=== PATIENT | male | born 2000 | race Caucasian/White ===

== ENCOUNTER → 2024-04-24 08:09 | Outpatient (CLI) | payer OTHER, SELFPAY ==
--- NOTE | 2024-04-24 08:12 | DI.RAD.S_ITS ---
PROCEDURE: [place] SHOULDER INJECTION MR/CT RT INDICATIONS: RIGHT SHOULDER PAIN COMPARISON: None. TECHNIQUE: The indications, alternatives, benefits, risks, and complications of the procedure were explained to the patient. Written informed consent was obtained and placed in the chart. The shoulder was examined fluoroscopically and a site for needle placement chosen for entry into the glenohumeral joint from an anterior approach. The skin was prepped and draped in a sterile fashion, and 1% lidocaine infiltrated from skin down to joint capsule. A spinal needle was inserted into the glenohumeral joint, and a small amount of iodinated contrast media injected to confirm intra-articular placement of the needle tip. This was followed by approximately 12 mL dilute solution of a gadolinium containing MR contrast agent. The needle was removed and a dressing was applied. The patient was given postprocedural instructions and sent to the MR suite for MR imaging. FINDINGS: A single fluoroscopic spot image demonstrates intra-articular location of injected iodinated contrast. IMPRESSION: Successful fluoroscopically guided administration of dilute Gadolinium solution into the shoulder joint for MR arthrogram. Approved by: Mehran Reyes M.D. on 04/24/2024 at 10:03
--- NOTE | 2024-04-24 08:12 | DI.MRI.S_ITS ---
PROCEDURE: MR SHOULDER RT W CON INDICATIONS: RIGHT SHOULDER PAIN; persistent pain after fall from approximately 7 ft height, not improved with PT. Concern for SLAP lesion versus rotator cuff tendinopathy. TECHNIQUE: After the administration of 12 mL of dilute intra-articular Gadolinium contrast, oblique coronal T1 and T2 spin echo with fat saturation, oblique sagittal T1 spin echo with and without fat saturation, oblique sagittal T2 fast spin echo with fat saturation, axial T1 spin echo with fat saturation through the shoulder. COMPARISON: [facility], , [place] SHOULDER INJECTION MR/CT RT, 04/24/2024, 7:30. FINDINGS: Image quality: Excellent. Rotator cuff: Mild supraspinatus tendinosis. The infraspinatus, teres minor, and subscapularis tendons are intact. The rotator cuff musculature is well-developed. Bones and bursae: No acute trabecular bone injury or fracture. Small chronic traction cystic changes at the posterior superior humeral head. No focal glenohumeral cartilage defect. Mild degenerative changes are seen at the acromioclavicular joint. There is trace noncommunicating subacromial/subdeltoid bursal fluid. No filling defect is seen in the glenohumeral joint space. Capsule and soft tissues: Nearly circumferential nondisplaced labral tearing. Proximal biceps long head tendon demonstrates mild tendinosis. The glenohumeral ligaments are intact. IMPRESSION: 1. Nearly circumferential nondisplaced labral tearing. 2. Mild proximal biceps long head tendinosis. 3. Mild tendinosis of the supraspinatus tendon. 4. Mild glenohumeral osteoarthrosis. Approved by: Mehran Reyes M.D. on 04/24/2024 at 12:37
[2024-04-24] MEDS: LIDOCAINE 1% 20 ML INJ (10:22)
[2024-04-24] MEDS: SODIUM CHLORIDE 0.9 % 20 ML VIAL IV (10:23)
== END ==
DX: S43.491A Other sprain of right shoulder joint, initial encounter (principal); M19.011 Primary osteoarthritis, right shoulder; M25.511 Pain in right shoulder
CPT/HCPCS: 23350; 73040; 73222; A9579; Q9967

== ENCOUNTER → 2024-10-18 10:30 | Outpatient (CLI) | payer OTHER, SELFPAY ==
--- NOTE | 2024-10-18 | DI.MRI.S_ITS ---
PROCEDURE: MR BRAIN (IAC) WWO CON INDICATIONS: Otalgia TECHNIQUE: Noncontrast sagittal T1 spin echo, axial FLAIR, axial gradient echo, axial diffusion and ADC through the brain. Axial thin-slice 3D CISS, coronal TruFISP, axial T1 spin echo with fat saturation through the internal auditory canals. After the administration of contrast, thin slice axial and coronal T1 spin echo with fat saturation through the internal auditory canals, and axial and coronal and sagittal T1 spin echo with fat saturation through the brain. COMPARISON: None. FINDINGS: Image quality: Excellent. Cerebellopontine angles: No cerebellopontine angle masses. Inner ear structures appear normally formed. No suspicious enhancement in the internal auditory canal or along the course of the 7th cranial nerve. CSF spaces: Ventricles are normal in size and shape. No extra-axial fluid collections. Basal cisterns are patent. Brain: No intracranial bleeds or mass effects. Padilla-white matter interface is intact. No abnormal intracranial enhancement. Diffusion weighted images demonstrate no acute ischemic insults. Brainstem appears normal. Normal intravascular flow voids are present. Skull and face: Calvarial marrow signal is normal. Orbits appear normal. Sinuses: Sinuses and mastoids are clear. IMPRESSION: Normal appearance of the cerebellopontine angles and internal auditory canals. Normal appearance of the brain. Dictated by: Morris Covington M.D. on 10/18/2024 at 12:54 Approved by: Morris Covington M.D. on 10/18/2024 at 12:59
== END ==
DX: H92.09 Otalgia, unspecified ear (principal)
CPT/HCPCS: 70553; A9579

== ENCOUNTER 2024-12-18 21:32 | Emergency (ER) | payer OTHER, SELFPAY ==
[2024-12-18] VITALS (8 sets, daily range): BP systolic 112–137; BP diastolic 55–76; PULSE 62–70; RESP 10–18; TEMP 36.7; O2SAT 97–100; BMI 25.8
--- NOTE | 2024-12-18 21:46 | EKG_ITS ---
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
[2024-12-19] VITALS: BP 116/58; PULSE 61; RESP 17; O2SAT 97
[2024-12-19 00:30] VITALS: BP 115/57; PULSE 63; RESP 17; O2SAT 97
[2024-12-19 01:00] VITALS: BP 118/57; PULSE 67; RESP 12; O2SAT 97
--- NOTE | 2024-12-19 01:04 | ED.HA ---
HPI - Headache General Chief Complaint: Headache Stated Complaint: migraine, N/V Time Seen by Provider: 12/19/24 01:04 Source: patient, RN notes reviewed and old records reviewed Mode of arrival: EMS Limitations: no limitations History of Present Illness HPI Narrative: 24-year-old male with a history of headaches states developed a headache this morning states it was sort of gradual onset more right-sided from the front and towards the back. Patient states worsened throughout the day became more intense than typical, he had some nausea and vomiting. States he has not had a headache that bad before. Has not happened before but not normally. Had some photophobia and blurred vision as well which has improved. Patient denies any fevers. No numbness, tingling or weakness no difficulty with movements. No chest pain or shortness of breath. No difficulty with speech. No bowel or bladder incontinence. No she was such as diarrhea or constipation. No urinary changes. No rash or skin changes. Patient states no daily medications. Denies any past medical history. No known drug allergies. Denies tobacco, alcohol or recreational drugs. Related Data Allergies Allergy/AdvReac Type Severity Reaction Status Date / Time No Known Drug Allergies Allergy Verified 04/24/24 10:03 Review of Systems Review of Systems ROS Unobtainable: All systems reviewed & are unremarkable except as noted in HPI and below Exam Narrative Exam Narrative: GEN: well nourished, well appearing male, alert and oriented x 3, patient appears to be in mild distress. HEENT: Atraumatic, pupils are equal round reactive to light, no photophobia, extraocular movements are intact, no nystagmus, nares are clear, TMs are clear with no fluid, there is no conjunctival pallor. Throat is clear without any exudates, erythema, tonsillar enlargement or uvular deviation, no facial droop. HEART: Regular rate and rhythm without murmur, clicks, rubs. LUNGS:Lungs clear to auscultation, no wheezes, rales, crackles, chest moves symmetrically ABD:bowel sounds normal, soft, non-tender, no guarding, rebound, rigidity, no masses noted, no hepatosplenomegaly MSCL: Non-tender, no muscle atrophy, muscles strength 5/5 upper and lower extremities, full range of motion, normal gait NEURO:CN 2-12 intact, sensation normal, reflexes 2/4 upper and lower extremities. finger nose finger test normal, heel hong test normal. SKIN: No rash, erythema or other skin changes Initial Vital Signs Initial Vital Signs: Vital Signs Temperature 98.1 F 12/18/24 21:40 Pulse Rate 70 12/18/24 21:40 Respiratory Rate 18 12/18/24 21:40 Blood Pressure 137/76 12/18/24 21:40 Pulse Oximetry 100 12/18/24 21:40 Oxygen Delivery Method Room Air 12/18/24 21:40 Course Orders Ordered: ED Orders 12/18/24 21:46 EKG-12 Lead Routine 12/19/24 01:20 CT head/brain wo con Stat Discontinued Medications Acetaminophen (Acetaminophen 325 Mg Tablet) 975 mg PO NOW ONE Stop: 12/19/24 01:21 Last Admin: 12/19/24 01:34 Dose: 975 mg Documented By: CARLOS Metoclopramide HCl (Metoclopramide 10 Mg/2 Ml Inj) 10 mg IV NOW ONE Stop: 12/19/24 01:21 Last Admin: 12/19/24 01:34 Dose: 10 mg Documented By: CARLOS Vital Signs Vital signs: Vital Signs - 8 hr 12/18/24 21:40 12/18/24 21:43 12/18/24 21:49 Temperature 98.1 F Pulse Rate 70 70 Respiratory Rate 18 10 L Blood Pressure 137/76 137/76 Pulse Oximetry 100 Oxygen Delivery Method Room Air 12/18/24 21:49 12/18/24 22:00 12/18/24 22:00 Temperature Pulse Rate 68 70 Respiratory Rate 16 14 Blood Pressure 112/57 L Pulse Oximetry 98 Oxygen Delivery Method 12/18/24 22:30 12/18/24 22:30 12/18/24 23:00 Temperature Pulse Rate 67 Respiratory Rate 15 Blood Pressure 113/63 122/58 L Pulse Oximetry 98 Oxygen Delivery Method 12/18/24 23:00 12/18/24 23:30 12/18/24 23:31 Temperature Pulse Rate 62 65 67 Respiratory Rate 17 16 17 Blood Pressure Pulse Oximetry 98 97 98 Oxygen Delivery Method 12/18/24 23:31 12/19/24 00:00 12/19/24 00:00 Temperature Pulse Rate 61 Respiratory Rate 17 Blood Pressure 116/55 L 116/58 L Pulse Oximetry 97 Oxygen Delivery Method 12/19/24 00:30 12/19/24 00:30 12/19/24 01:00 Temperature Pulse Rate 63 Respiratory Rate 17 Blood Pressure 115/57 L 118/57 L Pulse Oximetry 97 Oxygen Delivery Method 12/19/24 01:00 12/19/24 01:54 12/19/24 01:54 Temperature Pulse Rate 67 71 Respiratory Rate 12 26 H Blood Pressure 117/56 L Pulse Oximetry 97 97 Oxygen Delivery Method 12/19/24 01:55 Temperature Pulse Rate 71 Respiratory Rate 22 Blood Pressure Pulse Oximetry 96 Oxygen Delivery Method Room Air MDM - Headache MDM Narrative Medical decision making narrative: 24-year-old male states he has a history of headaches but states it has been a little bit more frequent had much more intense headache than he has had in the past. States was gradual onset. No syncope. Patient states he had nausea vomiting has had that in the past with headaches but not regularly. No other neurologic changes appreciated by history or on exam. Patient does note frequency has been a little bit more lately. Vitals are overall appropriate. He had ondansetron and Toradol EN route states headache is down to 5/10 from a 10/10 that it was before. Is agreeable to little bit medications he was given Reglan and Tylenol. Received fluids in route as well. After discussion we will obtain head CT to evaluate for any bleed or mass as he has had a change in frequency and intensity of his headaches. Head CT is negative for acute change. EKG shows sinus rhythm with sinus arrhythmia rate of 71 VT 152 QRS of 92 QTC of 425. Patient received Reglan and Tylenol here. He received Toradol and ondansetron and normal saline en route with EMS. Discharge Plan Departure Patient Disposition: Home Clinical Impression: Headache Instructions: DI for Headache Activity Restrictions/Additional Instructions: Follow up for recheck if you are having any persistent symptoms or increasing frequency or intensity of headaches. Continue with the acetaminophen to a 1000 mg every 6 hours and/or ibuprofen to 600 mg every 6 hours as needed for headaches. Please return for fevers, rapidly worsening headaches, sudden vision changes, persistent vomiting, new numbness, tingling or weakness, difficulty with speech, difficulty with ambulation or walking, passing out or other new or concerning changes. Referrals: [facility] [Primary Care Provider] - Stand Alone Forms: Patient Portal/API/Survey, Work Release Note
--- NOTE | 2024-12-19 01:20 | DI.CT.S_ITS ---
PROCEDURE: CT HEAD/BRAIN WO CON INDICATIONS: simmons, worse than typical simmons's, more frequent lately TECHNIQUE: Noncontrast 4.5 mm thick angled axial sections acquired from the foramen magnum to the vertex, with coronal and sagittal reformats. For radiation dose reduction, the following was used: automated exposure control, adjustment of mA and/or kV according to patient size. COMPARISON: None. FINDINGS: Image quality: Diagnostic CSF spaces: Basal cisterns are patent. Lateral ventricles are symmetric. Volume: Generally maintained. Brain: No intracranial hemorrhage. Paidlla-white differentiation is grossly maintained. Craniofacial structures: No displaced fracture. Sinuses are clear. Orbits are intact. IMPRESSION: No acute intracranial pathology. If there is high concern for parenchymal pathology, consider further evaluation with MRI. Dictated by: Robert Sparks M.D. on 12/19/2024 at 1:39 Approved by: Robert Sparks M.D. on 12/19/2024 at 1:40
[2024-12-19] MEDS: ACETAMINOPHEN 325 MG TABLET 975 MG PO (01:34)
[2024-12-19] MEDS: METOCLOPRAMIDE 10 MG/2 ML INJ IV (01:34)
[2024-12-19 01:54] VITALS: BP 117/56; PULSE 71; RESP 26; O2SAT 97
[2024-12-19 01:55] VITALS: PULSE 71; RESP 22; O2SAT 96
== END 2024-12-19 01:59 | disposition home or self-care (01) ==
PROVIDERS: Emergency Provider Emergency Medicine
DX: R51.9 Headache, unspecified (principal); I49.8 Other specified cardiac arrhythmias; R11.2 Nausea with vomiting, unspecified
CPT/HCPCS: 70450; 93005; 96374; 99284; J2765

== ENCOUNTER → 2025-03-12 10:00 | Outpatient (CLI) | payer OTHER, SELFPAY ==
--- NOTE | 2025-03-12 10:03 | DI.RAD.S_ITS ---
PROCEDURE: [place] JOINT INJECTION LARGE RT INDICATIONS: SHOULDER PAIN COMPARISON: [facility], [place], [place] SHOULDER INJECTION MR/CT RT, 04/24/2024, 7:30. TECHNIQUE: The indications, alternatives, benefits, risks, and complications of the procedure were explained to the patient. Written informed consent was obtained and placed in the chart. The patient was placed in an appropriate position on the fluoroscopy table, and a site was chosen for percutaneous access under fluoroscopic guidance. The site was prepped and draped in a sterile fashion. Local anesthetic was administered using a 1% lidocaine solution. A hypodermic or spinal needle was then used to access the symptomatic joint. Intra-articular location of the needle tip was confirmed by injecting a small amount of contrast, followed by steroid administration. The needle was then withdrawn, and a bandage applied to the puncture site. FINDINGS: Joint injected: Right glenohumeral joint Medications injected: 4 mL of 40 mg/mL Kenalog and 0.5% Ropivacaine mixture. Patient's pain before injection: 6 out of 10. Patient's pain after injection: 2 out of 10. Complications: None. IMPRESSION: Successful fluoroscopically guided administration of steroid and anaesthetic solution into the right glenohumeral joint. Dictated by: Ben Conway M.D. on 03/12/2025 at 12:41 Approved by: Ben Conway M.D. on 03/12/2025 at 12:42
== END ==
PROVIDERS: Referring Provider Student in an Organized Health Care Education/Training Program; Visit Provider Student in an Organized Health Care Education/Training Program
DX: M25.511 Pain in right shoulder (principal)
CPT/HCPCS: 20610; 77002